=== PATIENT | female | born 1940 | race Caucasian/White ===

== ENCOUNTER 2020-11-27 09:25 | Emergency (ER) | payer OTHER, MEDICAID ==
[~2020-11-27] VITALS: Ht 167.6 cm; Wt 77.1 kg
[2020-11-27 09:30] VITALS: BP_SYST 165
--- NOTE | 2020-11-27 09:32 | NUR ---
RECEIVED AND IN ROOM 5, HARD C-COLLAR IN PLACED, ON MONITOR VSS
--- NOTE | 2020-11-27 10:40 | NUR ---
CANELO Moreno at bedside examining patient.
--- NOTE | 2020-11-27 10:50 | NUR ---
HERE FROM HOME FOR S/P MECHANICAL FALL, DENIES HEAD INJURY
--- NOTE | 2020-11-27 11:40 | NUR ---
UP TO BSC TOLERATED WELL, C/O NECK STIFFNESS
--- NOTE | 2020-11-27 11:59 | NUR ---
DR MELVIN AT BEDSIDE
[2020-11-27] MEDS ORDERED: OXYCODONE/ACETAMINOPHEN 5-325 TABLET PO ONE (12:15)
--- NOTE | 2020-11-27 12:37 | NUR ---
MEDICATED ORDERED, BSC, RESP UNLABORED
--- NOTE | 2020-11-27 13:33 | NUR ---
DAUGHTER ON WAY TO RECEIVE MOTHER AT TRANSPORT HOME
[2020-11-27 14:31] VITALS: BP_SYST 147
== END 2020-11-27 14:31 | disposition home or self-care (01) ==
LOC: SED 09:25
DX: S06.0X0A Concussion without loss of consciousness, initial encounter (principal); S16.1XXA Strain of muscle, fascia and tendon at neck level, initial encounter; I10 Essential (primary) hypertension; K21.9 Gastro-esophageal reflux disease without esophagitis; W01.198A Fall on same level from slipping, tripping and stumbling with subsequent striking against other object, initial encounter; Y93.89 Activity, other specified; Y92.89 Other specified places as the place of occurrence of the external cause; Y99.8 Other external cause status
CPT/HCPCS: 70450-TC; 72125-TC; 76376; 99285

== ENCOUNTER 2023-03-02 22:32 | Emergency (ER) | payer OTHER, MEDICAID ==
[~2023-03-02] VITALS: Ht 162.6 cm; Wt 77.1 kg
[~2023-03-02 22:32] MED LIST: APIX2.5T PO; BUPR-48 PO; CEL250 PO; CEPH250C PO; DOCU250C14 PO; FLUT16SP16 NS; FURO-150 PO; HYDR-3927 PO; KLO1 PO; LEVO75TA7 PO; LIP40 PO; MECL-292 PO; MELA3TAB69 PO; METF-379 PO; METH-634 PO; MOM PO; POLY17PO4 PO; POTA-197 PO; PRED5TAB PO; PRO40 PO; SACU1TAB PO; SERT-131 PO; VIBE75TA PO
[2023-03-02 22:33] VITALS: BP_SYST 100; PULSE 89; RESP 17; TEMP 97.8; O2SAT 92
[2023-03-03 00:17] VITALS: BP_SYST 100; PULSE 89; RESP 17; TEMP 97.8; O2SAT 92
== END 2023-03-03 00:17 | disposition home or self-care (01) ==
LOC: SED 22:32
DX: S81.812A Laceration without foreign body, left lower leg, initial encounter (principal); I10 Essential (primary) hypertension; K21.9 Gastro-esophageal reflux disease without esophagitis; Z88.1 Allergy status to other antibiotic agents; Z88.6 Allergy status to analgesic agent; Z88.8 Allergy status to other drugs, medicaments and biological substances; Z79.899 Other long term (current) drug therapy; V00.818A Other accident with wheelchair (powered), initial encounter; Y93.89 Activity, other specified; Y92.89 Other specified places as the place of occurrence of the external cause; Y99.8 Other external cause status
CPT/HCPCS: 97597; 99283; 99284